=== PATIENT | female | born 1975 ===

== ENCOUNTER 2021-08-19 11:15 | Inpatient (IN) | payer OTHER ==
[~2021-08-19] VITALS: Ht 160 cm; Wt 3.2 kg
[2021-09-02] MEDS ORDERED: ZYRTEC10 M3 PO (01:00)
[2021-09-02] MEDS ORDERED: PRENATAL CAPLE1 EAC1 PO (01:00)
== END 2021-09-04 12:47 | disposition home or self-care (01) | DRG 788 ==
LOC: LDR 09-01 23:51 → OB/GYN 09-01 23:51 → O/R 09-02 04:30 → SURG-SUITE 09-02 05:25 → OB/GYN 09-02 15:30
PROVIDERS: ADMIT Obstetrics & Gynecology; ATTEND Obstetrics & Gynecology
PROC: 10D00Z1 Extraction of Products of Conception, Low, Open Approach (ICD-10-PCS; principal; 2021-09-01)
PROC: 4A1HXFZ Monitoring of Products of Conception, Cardiac Rhythm, External Approach (ICD-10-PCS; 2021-09-01)
DX: O62.1 Secondary uterine inertia (principal); O76 Abnormality in fetal heart rate and rhythm complicating labor and delivery; Z37.0 Single live birth; Z3A.39 39 weeks gestation of pregnancy

== ENCOUNTER → 2021-08-22 | Outpatient (CLI) | payer OTHER | END | disposition home or self-care (01) | LOC: NST 14:19 | PROVIDERS: ATTEND Obstetrics & Gynecology | DX: Z34.83 Encounter for supervision of other normal pregnancy, third trimester (principal) ==